=== PATIENT | male | born 1945 | race Caucasian/White ===

== ENCOUNTER → 2016-11-24 | Outpatient (CLI) | payer OTHER, MEDICARE ==
[~2016-11-24] MED LIST: ACETAMINOPHEN650 M5 PO; ARTIFICIAL TEAR15 M9 OPHTHALMIC; ASPIRIN EC81 M1 PO; AUGMENTIN 875875 MG PO; BENGAY ULTRA S113 GM TOP; BISOPROLOL FUMAR5 MG PO; CEFDINIR300 MG PO; CIPROFLOXACIN500 M1 PO; CLONAZEPAM 1 MG1 M1 PO; COLACE 100 MG100 MG PO; COUMADIN 1MG TAB1 M1 PO; COUMADIN 3 MG TA3 MG PO; FLOMAX0.4 MG PO; LAXATIVE PEG 3317 GM PO; MEDROLDOSEPACK PO; NORCO 5-325 TA1 EACH PO; PRAVASTATIN SOD40 MG PO; PRILOSEC 20 MG20 MG PO; VITAMIN D31000 UNI2 PO; ZOFRAN ODT4 MG PO
[2016-11-24 09:25] LABS: CREATININE 1.4 mg/dL (0.7-1.3)
== END ==
LOC: ULTRA 07:45
PROVIDERS: Internal Medicine
DX: I71.2 Thoracic aortic aneurysm, without rupture (principal); K80.20 Calculus of gallbladder without cholecystitis without obstruction; Z82.49 Family history of ischemic heart disease and other diseases of the circulatory system

== ENCOUNTER → 2017-03-10 | Outpatient (CLI) | payer OTHER, MEDICARE ==
[~2017-03-10] VITALS: Ht 190.5 cm; Wt 93.9 kg
[~2017-03-10] MED LIST changes: +CLONAZEPAM 0.50.5 M1 PO; +MELATONIN5 M4 PO; +TYLENOL EXTRA500 MG PO; +VITAMIN D35000 UNI1 PO
--- NOTE | ~2017-03-10 | P ---
[facility] [place] [address] PROCEDURE REPORT Name: NIKKI ESCUDERO Room #: REG [facility]#: [id number] Admission: 03/10/17 Attend Phys: Dmitriy Stephens Discharge: Date of : 45 Report #: [id number] THIS REPORT FOR: //name// CC: Dmitriy Peacock MD DATE OF SERVICE: 03/10/2017 PROCEDURE PERFORMED: Colonoscopy with biopsies. HISTORY OF PRESENT ILLNESS: The patient is a 71-year-old male, history of colon polyps, last colonoscopy in 2012. He does have intermittent left lower quadrant abdominal pain. He denies any blood in his stools. No family history of colon cancer. DESCRIPTION OF PROCEDURE: The risks and benefits of the procedure were explained to the patient, those risks including but not limited to bleeding, perforation, the risk of sedation. He understood these risks and gave informed consent. Sedation was given using propofol per Anesthesia. Next, a digital rectal exam was initially performed, which was normal. Next, using a standard Fujinon colonoscope, the scope was placed in the patient's anus and advanced under direct vision to the cecum. The overall prep was excellent. In the cecum, there was a 3 mm sessile polyp. This was removed with cold forceps, otherwise normal. The ileocecal valve was normal. The ascending, transverse and descending colon were normal. Multiple diverticula were noted in the sigmoid colon. No evidence of inflammation. Also, noted was a 5 mm sessile polyp. This was removed with cold forceps. The rectal mucosa was normal. On retroflexion, small nonbleeding internal hemorrhoids were noted, otherwise normal colonoscopy. The scope was then withdrawn and the procedure terminated. The patient tolerated the procedure well. IMPRESSION: 1. Two small colonic polyps. 2. Diverticulosis without inflammation. 3. Internal hemorrhoids. 4. Otherwise, normal colonoscopy. RECOMMENDATIONS: 1. Await biopsy results. 2. If polyps are hyperplastic, consider repeat colonoscopy in 10 years; if adenomatous polyp, repeat colonoscopy in 5 years. 3. Etiology of intermittent left lower quadrant abdominal pain is unclear. This may be musculoskeletal. He does report improvement after urination. May consider CT scan of the abdomen and pelvis. [address] [address] PROCEDURE REPORT Name: NIKKI ESCUDERO [facility] [id number] Admission: 03/10/17 Attend Phys: Dmitriy Stephens Discharge: Date of : 45 Report #: [id number] Thank you for allowing me to participate in his care. <ELECTRONICALLY SIGNED> By: Dmitriy Rick MD 03/10/17 1510 0854 0909 Dmitriy Rick MD /nt
--- NOTE | ~2017-03-10 | S ---
[facility] [place] [address] SURGICAL PATH RPT PROCEDURE Name: ROBBYKARENNIKKI Saulo Room #: REG [facility] [id number] Admission: 03/10/17 Date of : 45 Discharge: Report #: [id number] Path Case #: [id number] PATHOLOGY REPORT COLLECTION DATE: 03/10/2017 RECEIVED DATE: 03/10/2017 SUBMITTING PHYS: Dr. Dmitriy Rick OTHER PHYS: Dr. Nathan Peacock SPECIMEN(S) RECEIVED: A.Cecal bx B.Sigmoid colon * * * * * * * * * * * * FINAL DIAGNOSIS: A. Large intestinal mucosa, cecum, endoscopic biopsy: - Two lymphoid aggregates. - Negative for active colitis, dysplasia or malignancy. B. Large intestinal mucosa, sigmoid colon, endoscopic biopsy: - Hyperplastic polyp and lymphoid aggregate. - Negative for dysplasia or malignancy. (IUV:celestino; 03/13/2017) PATHOLOGIST: Janet Cedillo M.D. REPORT ELECTRONICALLY SIGNED BY: Janet Cedillo M.D. DATE/TIME: 03/13/2017 16:11 * * * * * * * * * * * * GROSS PATHOLOGY: A. Received in formalin labeled "JERONIMO Flynn of cecum," is a segment of blanco soft tissue measuring 0.4 cm in maximum dimension. The specimen is submitted entirely in cassette A1. B. Received in formalin labeled "Nikki Flowers BX of sigmoid colon," are 4 segments of blanco soft tissue measuring 1.0 x 0.5 x 0.2 cm in aggregate dimensions and ranging from 0.2 to 0.3 cm in maximum dimension. The specimen is submitted entirely in cassette B1. (TSD; 03/10/2017) CLINICAL HISTORY: Pre-OP DX: Hx of polyps Post-OP DX: 2: Polyps, diverticulosis, hemorrhoid INITIAL CPT CODE(S): A; 26028 B; [address] [address] SURGICAL PATH RPT PROCEDURE Name: ROBBYNIKKI JONES Room #: REG [facility].#: [id number] Admission: 03/10/17 Date of : 45 Discharge: Report #: [id number] Path Case #: [id number] Professional services performed by [facility] at [address] , [place] [address] Technical services performed by [facility] at [address] [place] [address], [facility] [address], [place] [address]. [facility] [address] [place] [address] PHONE: [phone] DIRECTOR: Jules Garcia M.D. * * * END OF REPORT * * *
== END | disposition home or self-care (01) ==
LOC: GI 07:00
DX: D12.0 Benign neoplasm of cecum (principal); K57.30 Diverticulosis of large intestine without perforation or abscess without bleeding; D12.5 Benign neoplasm of sigmoid colon; K64.8 Other hemorrhoids; I10 Essential (primary) hypertension; I71.4 Abdominal aortic aneurysm, without rupture; J45.909 Unspecified asthma, uncomplicated; Z90.49 Acquired absence of other specified parts of digestive tract; Z98.890 Other specified postprocedural states; E78.5 Hyperlipidemia, unspecified

== ENCOUNTER 2017-05-17 06:32 | Inpatient (IN) | payer OTHER, MEDICARE ==
[2017-05-17] VITALS (7 sets, daily range): BP systolic 115–187; BP diastolic 65–110
[~2017-05-17] VITALS: Ht 190.5 cm; Wt 94.3 kg
--- NOTE | ~2017-05-17 | HC ---
[facility] [place] [address] CONSULTATION Name: NIKKI ESCUDERO Saulo Room #: 212-P [facility] IN .R.#: [id number] Admission: 05/17/17 Attend Phys: Nathan Peacock MD Discharge: 05/17/17 Date of : 45 Report #: [id number] THIS REPORT FOR: //name// CC: Nathan Peacock MD REASON FOR CONSULTATION: Chest pain. HISTORY OF PRESENT ILLNESS: The patient is a 71-year-old gentleman with a history of recurrent DVT and pulmonary emboli for which he has been maintained on warfarin therapy. He has a history of remote IVC filter placement. He has a known 4.5 cm thoracic aortic aneurysm, which has been stable for many years. He now presents with left-sided chest pain. This occurred at about 4:45 this morning while in bed, he felt a "tapping sensation in his upper chest," he repositioned thinking this was musculoskeletal without relief; on exhalation, the pain seemed to be worse and a transient pressure-like feeling. This pain has come and gone over the past week. He denies other associated symptoms including shortness of breath, radiation, fevers, chills, or night sweats. There is no prior cardiac history. His last stress study he thinks was probably for at least 5 years ago. There have been no heart failure symptoms including orthopnea, paroxysmal nocturnal dyspnea, or lower extremity edema. He denies near syncope or syncope. A CT scan in the emergency department demonstrated stability in the ascending thoracic aortic aneurysm at 4.5 cm. His INR remains therapeutic. EKG and troponin levels have been normal. ALLERGIES: To PENICILLIN, SULFA, NIACIN, and TETRACYCLINE. MEDICATIONS: Include bisoprolol 2.5 mg daily, clonazepam, pravastatin 40 mg daily, and warfarin 3 mg daily. PAST MEDICAL HISTORY: Medical records have been reviewed and include a history of DVT, pulmonary emboli, mild hypertension, intracranial hemorrhage in the right parietal region in association with targeted thrombolytic therapy for extensive deep venous thrombosis following a trip about 4 years ago. SOCIAL HISTORY: He is an occasional cigar smoker. He is a nondrinker. . FAMILY HISTORY: Unremarkable for premature coronary artery disease. Father was a heavy smoker and of an abdominal aortic aneurysm rupture in the 1960s. Mother of a cerebral aneurysm. REVIEW OF SYSTEMS: All systems negative except as that noted above. PHYSICAL EXAMINATION: GENERAL: He is a pleasant gentleman, in no distress. VITAL SIGNS: Blood pressure is 125/69, heart rate of 53 and regular, [place] [address] CONSULTATION Name: NIKKI ESCUDERO Room #: 212-P [facility] IN .R.#: [id number] Admission: 05/17/17 Attend Phys: Nathan Peacock MD Discharge: 05/17/17 Date of : 45 Report #: [id number] afebrile, 6 feet 3 inches tall, and 208 pounds. HEENT: There are neither xanthelasma, subcutaneous xanthomata, oral mucosal or digital cyanosis or kyphoscoliosis present. CHEST: Clear to auscultation and percussion. CARDIAC: Regular rate and rhythm with normal S1, S2. No murmurs or rubs. ABDOMEN: Soft and nontender. EXTREMITIES: Without cyanosis or clubbing. There is trace pedal edema. Radial pulses are 2+. NEUROLOGIC: He is alert with a nonfocal exam. LABORATORY DATA: EKG, sinus bradycardia, otherwise normal tracing. Sodium is 140, potassium 4.3, creatinine 1.4, which is at or near his baseline. Troponin 0. INR of 2.7. White count 3.8, hemoglobin 14, hematocrit 43, platelet count 149. CTA as detailed above. Chest x-ray is normal, calcified granulomas. IMPRESSION: 1. Chest pain with mixed features for angina, many features are somewhat unusual. 2. Mild hypertension. 3. Dyslipidemia. 4. History of deep venous thrombosis and pulmonary emboli; prior inferior vena cava filter placement. 5. Intracranial hemorrhage related to targeted thrombolytic therapy for deep venous thrombosis 4 years ago. 6. Thoracic aortic aneurysm, stable in size at 4.6 cm. 7. Dyslipidemia. RECOMMENDATIONS: 1. Pharmacologic stress study. 2. Echocardiogram with Doppler to assess aortic valve competence in the presence of thoracic aortic aneurysm. 3. The threshold for repair of a thoracic aortic aneurysm as I have discussed with the patient and his is 5.5 cm. Continued periodic surveillance is warranted. 4. Further thoughts will be forthcoming based on this evaluation. Thank you for asking me to participate in the patient's care. <ELECTRONICALLY SIGNED> By: El Juárez MD, [facility] 05/18/17 0849 0850 1130 El Juárez MD, FAC /nt
--- NOTE | ~2017-05-17 | 2DMMODE ---
[facility] [address] [place] [address] 2 D/M-MODE ECHOCARDIOGRAM Name: NIKKI ESCUDERO Room #: 212-P [facility] IN .R.#: [id number] Admission: 05/17/17 Attend Phys: Nathan Peacock MD Discharge: Date of : 45 Date of Service: 05/17/17 1505 Report #: [id number] THIS REPORT FOR: //name// APPROVED REPORT Study performed: 05/17/2017 11:57:10 EXAM: Comprehensive 2D, Doppler, and color-flow Echocardiogram Patient Location: Echo lab Room #: [facility] Status: routine BSA: 2.23 HR: 70 bpm BP: 125/69 mmHg Other Information Study Quality: Adequate Indications Chest Pain Hypertension/HDD Dilated Aorta 2D Dimensions LVEF(%): 68.26 (>50%) IVSd: 10.38 (7-11mm) LVOT Diam: 26.99 (18-24mm) LVDd: 54.80 mm PWd: 9.92 (7-11mm) Ascending Ao: 47.69 (22-36mm) LVDs: 33.69 (25-40mm) Aortic Root: 44.09 mm IVC: 14.00 mm Coreas's LVEF: 68.26 % Aortic Valve AoV Peak Chepe.: 1.15 m/s AO Peak Gr.: 5.32 mmHg LVOT Max P.95 mmHg LVOT Max V: 0.86 m/s JIMENEZ Vmax: 4.26 cm2 AI Vmax: 3.99 m/s AI Desoto: 1.29 m/s2 AI PHT: 946.05 ms Mitral Valve E/A Ratio: 1.1 MV Decel. Time: 376.64 ms MV E Max Chpee.: 0.56 m/s [facility] [employer] [place] [place] [address] 2 D/M-MODE ECHOCARDIOGRAM Name: NIKKI ESCUDERO Room #: 212-P [facility] IN .R.#: [id number] Admission: 05/17/17 Attend Phys: Nathan Peacock MD Discharge: Date of : 45 Date of Service: 05/17/17 1505 Report #: [id number] MV A Chepe.: 0.50 m/s MV PHT: 109.23 ms IVRT: 179.93 ms Pulmonary Valve PV Peak Chepe.: 0.87 m/s PV Peak Gr.: 3.03 mmHg Pulmonary Vein P Vein S: 0.44 m/s P Vein A: 0.33 m/s P Vein D: 0.29 m/s P Vein A Dur.: 133.8 msec P Vein S/D Ratio: 1.52 Tricuspid Valve TR Peak Chepe.: 2.37 m/s TR Peak Gr.: 22.47 mmHg PA Pressure: 27.00 mmHg Left Ventricle The left ventricle is normal size. There is normal LV segmental wall motion. There is normal left ventricular wall thickness. The left ventricular systolic function is normal. The left ventricular ejection fraction is within the normal range. LVEF is 55-60%. Grade I - abnormal relaxation pattern. Right Ventricle The right ventricle is normal size. The right ventricular systolic function is normal. Atria The left atrium size is normal. The right atrium size is normal. Aortic Valve The aortic valve is normal in structure, trileaflet Mild aortic regurgitation. There is no aortic valvular stenosis. Mitral Valve The mitral valve is normal in structure. No mitral regurgitation. No evidence of mitral valve stenosis. Tricuspid Valve The tricuspid valve is normal in structure. There is trace tricuspid regurgitation. Estimated PAP 27 mmHg. There is no pulmonary hypertension. Pulmonic Valve [address] [address] 2 D/M-MODE ECHOCARDIOGRAM Name: NIKKI ESCUDERO Saulo Room #: 212-P [facility] IN [facility]#: [id number] Admission: 05/17/17 Attend Phys: Nathan Peacock MD Discharge: Date of : 45 Date of Service: 05/17/17 1505 Report #: [id number] The pulmonary valve is normal in structure. There is no pulmonic valvular regurgitation. Great Vessels There aortic root is dilated. The ascending aorta is dilated, 4.7cm. IVC is normal in size and collapses >50% with inspiration. Pericardium There is no pericardial effusion. <Conclusion> The left ventricular systolic function is normal. There is normal LV segmental wall motion. LVEF is 55-60%. Grade I diastolic dysfunction The aortic valve is normal in structure, trileaflet. Mild aortic regurgitation, no stenosis. The mitral valve is normal in structure. No mitral regurgitation. The ascending aorta is dilated, 4.7cm. Pulmonary artery pressure of 27mmHg There is no pericardial effusion. <ELECTRONICALLY SIGNED> By: El Juárez MD, [facility] 05/17/17 1505 1505 1505 El Juárez MD, FACC /INF
--- NOTE | ~2017-05-17 | D ---
[facility] [place] [address] DISCHARGE SUMMARY Name: NIKKI ESCUDERO Room #: 212-P [facility] IN .R.#: [id number] Admission: 05/17/17 Attend Phys: Nathan Peacock MD Discharge: Date of : 45 Report #: [id number] THIS REPORT FOR: //name// CC: Nathan Peacock DATE OF SERVICE: 05/17/2017 HISTORY OF PRESENT ILLNESS: This is a 71-year-old male with a known dilated aortic root, who awakened in the night with left-sided chest pain, which seemed to refer to the back. He became anxious and called 911. He was transported to the Emergency Department for evaluation where he was seen by Dr. Edgar. Initial electrocardiograms were normal as was his chest x-ray and initial troponin. He was hospitalized because of undiagnosed chest pain. The patient has a 4.5 cm aortic root, described as "aneurysmal." The patient has been warned that dissection would cause pain in the anterior and posterior chest, which occurred during the night, raising concern. His previous cardiac catheterization here in 2008 was negative for any coronary artery disease, although he does have some risk factors. HOSPITAL COURSE: The patient was admitted through the Emergency Room and to a progressive care unit bed. Serial troponins were normal. Screening laboratory including CBC, BNP and CMP were normal with a creatinine of 1.4, but otherwise unremarkable. The patient was seen in consultation by Dr. El Juárez from Cardiology who recommended both echocardiogram and nuclear stress testing, both of which were performed. In the Emergency Department, Dr. Edgar requested a CT chest, which showed an unchanged aortic root and no intrapulmonary pathology. On the evening of 05/17/2017, the patient was seen and reexamined and at that time, he showed evidence of left fourth costal cartilaginous tenderness consistent with costochondritis. Review of the patient's history reveals that he has been having pain in the same area with lifting bags of leaves. He also had pain in that area when he rolled to his left side during the night and when exhaled, which he felt was a very mechanical cause for his pain at that time. The patient did not have any gastrointestinal complaints or other causes for chest pain. It was concluded that his discomfort was chest wall origin arising from the fourth costal cartilage on the left. He was reassured that he can exercise and resume normal activity without risk. FINAL DIAGNOSES: 1. Chest pain in adult, musculoskeletal (costochondritis). 2. Dilated ascending aorta (4.6 cm), stable. 3. Hypercholesterolemia, treated. 4. Chronic kidney disease, stage 3, stable. [address] [address] DISCHARGE SUMMARY Name: NIKKI ESCUDERO Room #: 212-P [facility] IN ..#: [id number] Admission: 05/17/17 Attend Phys: Nathan Peacock MD Discharge: Date of : 45 Report #: [id number] DISCHARGE MEDICATIONS: Bisoprolol 2.5 mg daily, pravastatin 40 mg daily, warfarin 3 mg daily, clonazepam 1 mg at bedtime, fish oil 1000 mg, vitamin D3 1000 units, melatonin 3 mg daily. DISPOSITION: Resume usual diet and activity. CONSULTANTS: El Juárez MD, ([facility]). PROCEDURE: Pharmacologic stress test. COMPLICATIONS: None. By: [id number] Nathan Peacock MD /nt
--- NOTE | ~2017-05-17 | EKG ---
[address] [address] ELECTROCARDIOGRAM REPORT Name: NIKKI ESCUDERO Room #: 212-P [facility] IN M.R.#: [id number] Admission: 05/17/17 Attend Phys: Nathan Peacock MD Discharge: Date of : 45 Report #: [id number] THIS REPORT FOR: //name// [facility] ED Test Date: 2017-05-17 Test Time: 06:36:08 Pat Name: NIKKI ESCUDERO Department: Room: [facility] Gender: M [employer]: BELA : 1945 Requested By: Adali Edgar Order Number: [id number] MD: El Juárez Measurements Intervals [place] Rate: 55 P: 19 SD: 209 QRS: -38 QRSD: 106 T: 6 QT: 457 QTc: 438 Interpretive Statements Sinus rhythm Leftward axis Compared to ECG 01/19/2016 12:01:36 Atrial premature complex(es) no longer present Electronically Signed On 05-17-2017 9:56:46 [employer] by El Juárez [email or web address] <ELECTRONICALLY SIGNED> By: El Juárez MD, [facility] 05/17/17 0956 El Juárez MD, [facility] /EPI
--- NOTE | ~2017-05-17 | H ---
[facility] [place] [address] HISTORY AND PHYSICAL Name: NIKKI ESCUDERO Room #: 212-P ADM IN M.R.#: [id number] Admission: 05/17/17 Attend Phys: Nathan Peacock MD Discharge: Date of : 45 Report #: [id number] THIS REPORT FOR: //name// CC: Nathan Peacock DATE OF SERVICE: 05/17/2017 This is a 71-year-old male who presented to the Emergency Room where he was evaluated by Dr. Adali Edgar and subsequently hospitalized. CHIEF COMPLAINT: Chest pain. HISTORY OF PRESENT ILLNESS: This patient awakened at about 3:00 and rolled to his left following which he began to have a "tap tap" discomfort in the left chest. Subsequently, he noted an aching dull discomfort, which was felt both in the left precordium and in the back. He began to worry about the status of his known aortic aneurysm. During that time, he also noted that he had pain with exhaling. He did not have diaphoresis, nausea, indigestion, shortness of air, but he did have a left-sided headache, which he commonly has when he lies on his left side. The patient became concerned about his aorta and about his cardiac status and dialed 911 and was transported to the Emergency Department. Evaluation revealed a normal troponin, normal EKG both in the ambulance and also in the Emergency Department. He is hospitalized for further evaluation. PAST MEDICAL HISTORY: The patient has had a history of recurrent pulmonary emboli for which he is fully anticoagulated. He has had left deep vein thrombosis and following thrombolytic therapy, the patient developed a parietal hematoma in 03/2016. He was hospitalized at [facility] at that time in the Intensive Care Unit and had a protracted recovery. The patient has a known dilated ascending aorta measuring a maximum of 4.6 cm, which has been stable and followed routinely. 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 PAST SURGICAL HISTORY: Appendectomy, tonsillectomy, right rotator cuff repair, bilateral scleral edwar, bilateral cataracts with lens implants, endoscopic sinus surgery and a laser capsulotomy bilaterally IMMUNIZATIONS: Tdap 2009, Zostavax 2011, pneumococcal 23 vaccine 2004. ALLERGIES: PENICILLIN, TETRACYCLINE AND SULFA. [facility] [address] [place] [address] HISTORY AND PHYSICAL Name: NIKKI ESCUDERO Room #: 212-P [facility] IN [facility]#: [id number] Admission: 05/17/17 Attend Phys: Nathan Peacock MD Discharge: Date of : 45 Report #: [id number] SOCIAL HISTORY: The patient is a retired technical staff engineer, graduate of the [employer], nonsmoker, rare alcohol consumption. CURRENT MEDICATIONS: Bisoprolol 2.5 mg, pravastatin 40 mg, warfarin 3 mg, clonazepam 1 mg at bedtime. REVIEW OF SYSTEMS: GASTROINTESTINAL: No indigestive complaints, has been constipated recently, which he has been able to manage. GENITOURINARY: Does have nocturia 1-2 times each night. PULMONARY: No cough or congestion, did notice that his pain increased with expiration. CARDIOVASCULAR: See above. PHYSICAL EXAMINATION: GENERAL: This is a 71-year-old male who appears his stated age. Saline lock has been started. His is on cardiac telemetry with a normal sinus rhythm. LUNGS: Clear. CHEST: There is tenderness in the left forth costochondral region, which seems to reproduce his pain. ABDOMEN: Soft, nontender. There is no organomegaly. CARDIOVASCULAR: No murmurs are heard, regular rhythm. Normal peripheral pulses and trace edema. IMPRESSION: Chest pain, probable chest wall origin. Doubt, cardiac, but does have cardiovascular risk factors of age and hypercholesterolemia. PLAN: The patient will be hospitalized, seen in consultation by Dr. El Juárez, who will order a pharmacologic stress test and an echocardiogram. After discussion with Dr. Edgar, she proceeded with a CT scan of the chest to exclude aortic dissection or evidence of pulmonary emboli (which is unlikely because the patient is therapeutically anticoagulated with warfarin). We will maintain his home medications with plans to discharge if testing is negative. By: [id number] Nathan Peacock MD /nt
[2017-05-17 06:44] LABS: ABSOLUTE NEUTROPHILS 2.5 thou/uL (1.4-8.2); EOSINOPHILS 3.2 % (0.0-3.0); HEMATOCRIT 43.6 % (42.0-52.0); HEMOGLOBIN 14.8 gm/dL (14.0-18.0); MCH 30.8 pg (26.0-34.0); MCHC 33.9 g/dL (28.0-37.0); MCV 90.8 fL (80.0-100.0); MONOCYTES 7.6 % (1.0-8.0); PLATELET COUNT 149 thou/uL (150-400); POLYS 65.2 % (36.0-66.0); WBC 3.8 thou/uL (4.0-11.0)
[2017-05-17 06:46] LABS: MANUAL DIFF NO
[2017-05-17 06:50] LABS: ANION GAP 7 mmol/L (7-16); BUN 24 mg/dL (7-18); CALCIUM 9.7 mg/dL (8.5-10.1); CHLORIDE 107 mmol/L (98-107); CO2 26 mmol/L (21-32); CREATININE 1.4 mg/dL (0.7-1.3); GLUCOSE 101 mg/dL (74-106); POTASSIUM 4.3 mmol/L (3.5-5.1); SODIUM 140 mmol/L (136-145)
[2017-05-17 06:58] LABS: APTT 36.9 Seconds (24.5-32.8); INR 2.7; TROPONIN-I < 0.04 ng/mL (<0.06)
[2017-05-17 07:27] LABS: ALBUMIN 4.2 g/dL (3.4-5.0); DIRECT BILIRUBIN 0.2 mg/dL (<0.1-0.3); TOTAL BILIRUBIN 0.6 mg/dL (<0.1-1.0); TOTAL PROTEIN 7.6 g/dL (6.4-8.2)
[2017-05-17] MEDS ORDERED: CLONAZEPAM 1 MG1 M1 PO (18:14)
== END 2017-05-17 19:30 | disposition home or self-care (01) | DRG 206 ==
LOC: ER 06:32 → EROBS 07:21 → 2N 08:08
PROVIDERS: Emergency Medicine
DX: M94.0 Chondrocostal junction syndrome [Tietze] (principal); I69.354 Hemiplegia and hemiparesis following cerebral infarction affecting left non-dominant side; K57.90 Diverticulosis of intestine, part unspecified, without perforation or abscess without bleeding; J45.909 Unspecified asthma, uncomplicated; I71.2 Thoracic aortic aneurysm, without rupture; N18.3 Chronic kidney disease, stage 3 (moderate); I12.9 Hypertensive chronic kidney disease with stage 1 through stage 4 chronic kidney disease, or unspecified chronic kidney disease; I20.9 Angina pectoris, unspecified; Z96.1 Presence of intraocular lens; E78.00 Pure hypercholesterolemia, unspecified; Z86.718 Personal history of other venous thrombosis and embolism; Z87.01 Personal history of pneumonia (recurrent); Z90.49 Acquired absence of other specified parts of digestive tract; Z87.442 Personal history of urinary calculi; Z88.1 Allergy status to other antibiotic agents; Z88.0 Allergy status to penicillin; Z88.2 Allergy status to sulfonamides; Z86.711 Personal history of pulmonary embolism; Z84.89 Family history of other specified conditions; Z98.42 Cataract extraction status, left eye; Z98.41 Cataract extraction status, right eye
CPT/HCPCS: 10194

== ENCOUNTER → 2017-08-02 | Outpatient (CLI) | payer OTHER, MEDICARE ==
[~2017-08-02] MED LIST changes: +CLEOCIN HCL150 MG PO
[2017-08-02 12:22] LABS: HEMATOCRIT 41.3 % (42.0-52.0); HEMOGLOBIN 14.1 gm/dL (14.0-18.0); MCHC 34.1 g/dL (28.0-37.0); RBC 4.53 mil/uL (4.50-6.00); RDW 12.9 % (10.5-14.5); WBC 6.3 thou/uL (4.0-11.0)
== END ==
LOC: RAD 11:47
PROVIDERS: Internal Medicine
DX: R05 Cough (principal); R09.89 Other specified symptoms and signs involving the circulatory and respiratory systems; R50.9 Fever, unspecified

== ENCOUNTER 2017-09-11 12:10 | Emergency (ER) | payer OTHER, MEDICARE ==
[~2017-09-11] VITALS: Ht 190.5 cm; Wt 94.3 kg
[~2017-09-11 12:10] MED LIST changes: -CLEOCIN HCL150 MG PO
[2017-09-11 13:04] LABS: INR 2.8; PROTIME 28.1 Seconds (9.3-11.4)
[2017-09-11] MEDS ORDERED: CLEOCIN HCL150 MG PO (14:12)
[2017-09-11] MEDS ORDERED: NORCO 5-325 TA1 EACH PO (14:12)
== END 2017-09-11 14:55 | disposition home or self-care (01) ==
LOC: ER 12:10
PROVIDERS: Emergency Medicine
DX: R04.0 Epistaxis (principal); J45.909 Unspecified asthma, uncomplicated; I10 Essential (primary) hypertension; E78.5 Hyperlipidemia, unspecified; Z87.01 Personal history of pneumonia (recurrent); Z88.0 Allergy status to penicillin; Z88.1 Allergy status to other antibiotic agents; Z88.2 Allergy status to sulfonamides

== ENCOUNTER → 2018-05-23 | Outpatient (CLI) | payer OTHER, MEDICARE ==
[~2018-05-23] MED LIST changes: +CLEOCIN HCL150 MG PO
[2018-05-23 09:33] LABS: CREATININE 1.3 mg/dL (0.7-1.3)
== END ==
LOC: CAT 08:49
PROVIDERS: Internal Medicine
DX: I71.2 Thoracic aortic aneurysm, without rupture (principal); K80.80 Other cholelithiasis without obstruction